=== PATIENT | female | born 1965 | race Caucasian/White ===

== ENCOUNTER 2020-11-29 10:04 | Outpatient (CLI) | payer BC | END 2020-11-29 10:05 | disposition home or self-care (01) | LOC: CTENTCT 10:04 | PROVIDERS: ATTEND Specialist | DX: J32.9 Chronic sinusitis, unspecified (principal) | CPT/HCPCS: 70486 ==

== ENCOUNTER 2021-01-10 09:48 | Outpatient (CLI) | payer BC ==
[2021-01-10 11:22] LABS: BHCG - Serum Negative (NEGATIVE); Pregs Control Background? CLEAR/WHITE (CLR/WHITE); Pregs Control Bar Appear? YES (CONTROL BAR)
[2021-01-10 20:38] LABS: SARS-CoV-2 PCR by NAA Not Detected (NotDetected)
== END 2021-01-10 09:49 | disposition home or self-care (01) ==
LOC: LABBT 09:48
PROVIDERS: ATTEND Specialist
DX: Z01.818 Encounter for other preprocedural examination (principal); J32.4 Chronic pansinusitis; J34.2 Deviated nasal septum; J34.3 Hypertrophy of nasal turbinates; J33.9 Nasal polyp, unspecified; Z72.0 Tobacco use; Z20.822 Contact with and (suspected) exposure to COVID-19
CPT/HCPCS: 84703; 85014; 93005; 93010; U0003; U0005

== ENCOUNTER 2021-01-12 09:10 | Day surgery (SDC) | payer BC ==
[2021-01-11 11:11] VITALS: BMI 32.1
[2021-01-12] MEDS ORDERED: Bacitracin Zinc Ointment 30 gm TUBE ONE (12:03)
[2021-01-12] MEDS ORDERED: AFRIN NASAL MIST 15 ML BOT ONE ×2 (12:03→12:17)
[2021-01-12] MEDS ORDERED: Lidocaine 1% w/Epinephrine 1:100K 20 ML VIAL ONE (12:03)
[2021-01-12] MEDS ORDERED: Fentanyl 250 MCG/5 ML VIAL ONE (12:14)
[2021-01-12] MEDS ORDERED: EPINEPHrine 1 MG/ML AMP ONE (12:36)
[2021-01-12] MEDS ORDERED: Ondansetron PF 4 MG/2 ML Vial ONE (13:01)
[2021-01-12] MEDS ORDERED: Ketorolac Tromethamine 30 MG/ML VIAL ONE (13:01)
[2021-01-12] MEDS ORDERED: Labetalol HCl 100 MG/20 ML VIAL ONE ×2 (13:01→15:15)
[2021-01-12] MEDS ORDERED: Lidocaine 1% PF 5 ML VIAL ONE (13:01)
[2021-01-12] MEDS ORDERED: ePHEDrine Sulfate 50 MG/10 ML VIAL ONE (13:01)
[2021-01-12] MEDS ORDERED: Rocuronium Bromide 10 MG/ML (10ML VIAL) ONE (13:01)
[2021-01-12] MEDS ORDERED: Dexamethasone 20 MG/5 ML VIAL ONE (13:01)
[2021-01-12] MEDS ORDERED: PROPOFOL 200 MG/20 ML VIAL ONE (13:01)
[2021-01-12] MEDS ORDERED: Fentanyl 100 MCG/2 ML VIAL ONE ×2 (14:31→14:52)
[2021-01-16 10:12] LABS: Fungus Stain Final report (.)
== END 2021-01-12 16:20 | disposition home or self-care (01) ==
LOC: SDC 09:10
PROVIDERS: ATTEND Specialist
PROC: 09SM4ZZ Reposition Nasal Septum, Percutaneous Endoscopic Approach (ICD-10-PCS; principal; 2021-01-12)
PROC: 09BT8ZZ Excision of Left Frontal Sinus, Via Natural or Artificial Opening Endoscopic (ICD-10-PCS; principal; 2021-01-12)
PROC: 099Q8ZZ Drainage of Right Maxillary Sinus, Via Natural or Artificial Opening Endoscopic (ICD-10-PCS; principal; 2021-01-12)
PROC: 09BV0ZZ Excision of Left Ethmoid Sinus, Open Approach (ICD-10-PCS; principal; 2021-01-12)
PROC: 09BS8ZZ Excision of Right Frontal Sinus, Via Natural or Artificial Opening Endoscopic (ICD-10-PCS; principal; 2021-01-12)
PROC: 09BU0ZZ Excision of Right Ethmoid Sinus, Open Approach (ICD-10-PCS; principal; 2021-01-12)
PROC: 099X8ZZ Drainage of Left Sphenoid Sinus, Via Natural or Artificial Opening Endoscopic (ICD-10-PCS; principal; 2021-01-12)
PROC: 09BL8ZZ Excision of Nasal Turbinate, Via Natural or Artificial Opening Endoscopic (ICD-10-PCS; principal; 2021-01-12)
PROC: 099R8ZZ Drainage of Left Maxillary Sinus, Via Natural or Artificial Opening Endoscopic (ICD-10-PCS; principal; 2021-01-12)
PROC: 099W8ZZ Drainage of Right Sphenoid Sinus, Via Natural or Artificial Opening Endoscopic (ICD-10-PCS; principal; 2021-01-12)
DX: J32.4 Chronic pansinusitis (principal); J34.2 Deviated nasal septum; J34.3 Hypertrophy of nasal turbinates; J33.9 Nasal polyp, unspecified; I10 Essential (primary) hypertension; E78.5 Hyperlipidemia, unspecified; F17.210 Nicotine dependence, cigarettes, uncomplicated; Z79.51 Long term (current) use of inhaled steroids; Z79.899 Other long term (current) drug therapy
CPT/HCPCS: 87070; 87102; 87205; 87206; J0171; J1100; J1885; J2405; J2704; J3010